=== PATIENT | female | born 1970 | race Caucasian/White ===

== ENCOUNTER 2019-08-01 13:20 | Emergency (ER) | payer OTHER ==
[~2019-08-01] VITALS: Ht 160 cm; Wt 73.5 kg
[2019-08-01 14:04] VITALS: Ht 160 cm; Wt 73.5 kg
[2019-08-01 17:25] VITALS: BP 125/70
== END 2019-08-01 17:25 | disposition home or self-care (01) ==
LOC: ED 13:20
DX: F07.81 Postconcussional syndrome (principal)
CPT/HCPCS: J1885

== ENCOUNTER 2019-08-08 11:02 | Emergency (ER) | payer OTHER ==
[~2019-08-08] VITALS: Ht 165.1 cm; Wt 72.6 kg
[2019-08-08 11:13] VITALS: Ht 165.1 cm; Wt 72.6 kg
[2019-08-08 13:51] VITALS: BP 135/84
== END 2019-08-08 13:54 | disposition home or self-care (01) ==
LOC: ED 11:02
DX: R51 Headache (principal); Z76.0 Encounter for issue of repeat prescription